=== PATIENT | male | born 1955 | race African-American/Black ===

== ENCOUNTER 2023-12-21 10:39 | Emergency (ER) | payer OTHER ==
[~2023-12-21] VITALS: Ht 185.4 cm; Wt 93.0 kg
[2023-12-21 10:43] VITALS: O2SAT 97
[2023-12-21 10:45] VITALS: BP 138/92; PULSE 92; RESP 16; TEMP 98; O2SAT 99
[2023-12-21 11:33] LABS: BASOPHILS % 1.3 % (0.0-2.0); DIFFERENTIAL COMMENT 0; EOSINOPHILS % 3.5 % (0.0-5.0); HEMATOCRIT. 47.4 % (42.0-52.0); HEMOGLOBIN. 15.9 g/dL (14.0-18.0); LYMPHOCYTES % 36.4 % (20.0-50.0); MEAN CORPUSCULAR HEMOGLOBIN 34.3 pg (28.0-32.0); MEAN CORPUSCULAR HGB CONC 33.5 g/dL (31.0-37.0); MEAN CORPUSCULAR VOLUME 102.4 fL (80.0-94.0); MEAN PLATELET VOLUME 7.3 fl (7.4-10.4); MONOCYTES % 6.2 % (2.0-8.0); NEUTROPHILS % 52.6 % (40.0-76.0); PLATELET 281 x1000/uL (130-400); RED BLOOD CELL COUNT 4.63 mill/uL (4.7-6.1); RED CELL DISTRIBUTION WIDTH 12.9 % (11.6-14.6); WHITE BLOOD COUNT 5.1 x1000/uL (4.5-11.0)
[2023-12-21 11:46] LABS: CHLORIDE 107 mEq/L (98-107); POTASSIUM 4.1 mEq/L (3.5-5.1); SODIUM 140 mEq/L (136-145)
[2023-12-21 11:47] LABS: CARBON DIOXIDE 26 mEq/L (21-32)
[2023-12-21 11:48] LABS: CALCIUM 9.6 mg/dL (8.7-10.4)
[2023-12-21 11:53] LABS: CREATININE 1.1 mg/dL (0.6-1.3); GLUCOSE 86 mg/dL (70-105); UREA NITROGEN BLOOD 8 mg/dL (9-23)
[2023-12-21] MEDS ORDERED: APIX5TAB4 PO (13:56)
== END 2023-12-21 14:20 | disposition home or self-care (01) ==
LOC: ER 10:39
DX: D17.9 Benign lipomatous neoplasm, unspecified (principal); I82.403 Acute embolism and thrombosis of unspecified deep veins of lower extremity, bilateral; R56.9 Unspecified convulsions
CPT/HCPCS: 36415; 80048; 85025; 93970; 99284